=== PATIENT | male | born 1995 | race Caucasian/White ===

== ENCOUNTER 2020-03-24 10:31 | Emergency (ER) | payer BC, OTHER ==
[2020-03-24 11:24] LABS: HEMOGLOBIN 16.7 gm/dl (14.0-17.5); RED BLOOD COUNT 5.44 M/UL (4.20-5.50); WHITE BLOOD COUNT 10.1 K/UL (4.5-11.0)
[2020-03-24 11:35] LABS: BUN/CREATININE RATIO 12 (0-10)
[2020-03-24] MEDS ORDERED: ZOFRAN ODT 4 MG4 MG PO (13:51)
[2020-03-24] MEDS ORDERED: IBUPROFEN600 MG PO (13:51)
== END 2020-03-24 14:24 | disposition home or self-care (01) ==
LOC: ER1 10:31
PROVIDERS: Emergency Medicine
DX: B34.9 Viral infection, unspecified (principal); J45.909 Unspecified asthma, uncomplicated; F17.200 Nicotine dependence, unspecified, uncomplicated; Z88.0 Allergy status to penicillin; Z20.822 Contact with and (suspected) exposure to COVID-19
CPT/HCPCS: 71045; 80053; 83605; 83690; 85025; 87081; 87880; 96374; 96375; 99285; J1100; J1885; J7030; U0002

== ENCOUNTER 2020-03-27 10:58 | Emergency (ER) | payer BC, OTHER ==
[~2020-03-27 10:58] MED LIST: IBUPROFEN600 MG PO; ZOFRAN ODT 4 MG4 MG PO
[2020-03-27] MEDS ORDERED: PROAIR HFA8.5 GM INH (13:50)
[2020-03-27] MEDS ORDERED: PREDNISONE 20 M20 MG PO (13:50)
== END 2020-03-27 14:13 | disposition home or self-care (01) ==
LOC: ER1 10:58
DX: J45.901 Unspecified asthma with (acute) exacerbation (principal); J20.9 Acute bronchitis, unspecified; I10 Essential (primary) hypertension; Z20.822 Contact with and (suspected) exposure to COVID-19; G47.30 Sleep apnea, unspecified; F17.200 Nicotine dependence, unspecified, uncomplicated; Z88.0 Allergy status to penicillin; Z79.899 Other long term (current) drug therapy; Z90.89 Acquired absence of other organs
CPT/HCPCS: 71045; 87081; 87880; 99285; U0002